=== PATIENT | male | born 1990 | race Caucasian/White ===

== ENCOUNTER 2017-11-12 10:41 | Emergency (ER) | payer OTHER ==
[~2017-11-12] VITALS: Ht 167.6 cm; Wt 83.1 kg
[2017-11-12 10:47] VITALS: BP 125/73
--- NOTE | 2017-11-12 10:54 | NUR ---
PATIENT TO ER BED 3
--- NOTE | 2017-11-12 10:55 | NUR ---
27m bib self with C/O PRODUCTIVE COUGH DARK MUCUS X 2 WKS; INTIALLY WITH LT EAR PAIN FOR THE FIRST 3 DAYS; NO PAIN AT THIS TIME. pt is aox4 with steady gait. rr are even and unlabored. nad. awaiting er md slade. all need met at this time.
--- NOTE | 2017-11-12 11:12 | NUR ---
DR. RICHARDS BEDSIDE EVALUATING PATIENT
[2017-11-12 11:20] VITALS: BP 121/70
--- NOTE | 2017-11-12 11:20 | NUR ---
Patient discharged with v/s stable. Written and verbal after care instructions given and explained. Patient alert, oriented and verbalized understanding of instructions. Ambulatory with steady gait. All questions addressed prior to discharge. ID band removed. Patient advised to follow up with PMD. Rx of Tessalon and Codeine with Promethazine given. Patient educated on indication of medication including possible reaction and side effects. Opportunity to ask questions provided and answered.
== END 2017-11-12 11:20 | disposition home or self-care (01) ==
LOC: MED 10:41
DX: J40 Bronchitis, not specified as acute or chronic (principal)
CPT/HCPCS: 99283

== ENCOUNTER 2018-04-03 08:25 | Emergency (ER) | payer OTHER ==
[~2018-04-03] VITALS: Ht 167.6 cm; Wt 83.5 kg
[2018-04-03 08:32] VITALS: BP 142/57
--- NOTE | 2018-04-03 08:36 | NUR ---
patient to rm 12 with steady gait. gave report to Carlos Alberto DOWELL.
[2018-04-03] MEDS ORDERED: KETOROLAC 60 MG/2 ML VIAL IM ONE (08:55)
--- NOTE | 2018-04-03 08:57 | NUR ---
PATIENT PRESENTS TO ED WITH c/o left ear pain and throat pain x 3 days---full clear speech, no drooling noted no accessory muscle use noted . . DENIES N/V/D; SKIN IS PINK/WARM/DRY; AAOX4 WITH EVEN AND STEADY GAIT; LUNGS CLEAR BL; HR EVEN AND REGULAR; PT DENIES ANY FEVER, CP, SOB, OR COUGH AT THIS TIME; PATIENT STATES PAIN OF 7/10 AT THIS TIME; VSS; PATIENT POSITIONED FOR COMFORT; HOB ELEVATED; BEDRAILS UP X2; BED DOWN. ER MD MADE AWARE OF PT STATUS.
--- NOTE | 2018-04-03 09:10 | NUR ---
PATIENT MEDICATED FOR LT. EAR PAIN/SORETHROAT
[2018-04-03 09:23] VITALS: BP 142/57
--- NOTE | 2018-04-03 09:24 | NUR ---
Patient discharged with v/s stable. Written and verbal after care instructions given and explained. Patient alert, oriented and verbalized understanding of instructions. Ambulatory with steady gait. All questions addressed prior to discharge. ID band removed. Patient advised to follow up with PMD. Rx of PREDNISONE/MOTRIN given. Patient educated on indication of medication including possible reaction and side effects. Opportunity to ask questions provided and answered.
== END 2018-04-03 09:24 | disposition home or self-care (01) ==
LOC: MED 08:25
DX: J02.9 Acute pharyngitis, unspecified (principal); R05 Cough; H92.02 Otalgia, left ear
CPT/HCPCS: 96372; 99283; J1885